=== PATIENT | female | born 1955 | race Caucasian/White ===

== ENCOUNTER 2019-02-08 13:34 | Emergency (ER) | payer MEDICAID ==
[~2019-02-08] VITALS: Ht 160 cm; Wt 62.7 kg
[2019-02-08 13:37] VITALS: Ht 160 cm; Wt 62.7 kg
[2019-02-08 14:44] VITALS: BP 137/73
== END 2019-02-08 14:44 | disposition home or self-care (01) ==
LOC: ED 13:34
DX: R21 Rash and other nonspecific skin eruption (principal); I10 Essential (primary) hypertension; L29.9 Pruritus, unspecified; E78.00 Pure hypercholesterolemia, unspecified; Z76.0 Encounter for issue of repeat prescription; Z86.73 Personal history of transient ischemic attack (TIA), and cerebral infarction without residual deficits